=== PATIENT | female | born 1985 | race Two or more races ===

== ENCOUNTER 2019-07-20 23:34 | Emergency (ER) | payer OTHER ==
[~2019-07-20] VITALS: Ht 170.2 cm; Wt 85.7 kg
--- NOTE | 2019-07-20 23:48 | NUR ---
BIB FOR C/O ABD PAIN AND N/V STARTING 1844 . W/ PMH OF FIBROID. HAD FIBROID REMOVED PARTIALLY AT [facility] ON May,. LBM: TODAY. LMP: 07/17/19
[2019-07-20] MEDS ORDERED: ONDANSETRON HCL/PF 4 MG/2 ML VIAL ONE (23:52)
[2019-07-20] MEDS ORDERED: MORPHINE SULFATE INJ 4 MG/ML DISP.SYRIN ONE (23:53)
--- NOTE | 2019-07-20 23:57 | NUR ---
CERTIFIED PHARMACY TECHNICIAN AT BEDSIDE FOR LABS.
[2019-07-21] MEDS ORDERED: IV NS 0.9% 1,000 ML BAG IV ONE
[2019-07-21] MEDS ORDERED: ONDANSETRON HCL/PF 4 MG/2 ML VIAL IVP ONE
--- NOTE | 2019-07-21 00:03 | NUR ---
URINE COLLECTED AND SENT TO LAB
[2019-07-21 00:08] LABS: BASOPHILS % (AUTO) 0.5 % (0.0-2.0); EOSINOPHILS % (AUTO) 0.2 % (0.0-6.0); HEMATOCRIT 34 % (33-45); HEMOGLOBIN 11.1 g/dL (11.5-14.8); LYMPHOCYTES # (AUTO) 0.7 /CMM (0.8-4.8); LYMPHOCYTES % (AUTO) 6.3 % (20.0-44.0); MEAN CORPUSCULAR HGB CONC 33 g/dl (31.0-36.0); MEAN CORPUSCULAR VOLUME 79 fL (82-100); MONOCYTES # (AUTO) 0.7 /CMM (0.1-1.30); MONOCYTES % (AUTO) 6.9 % (2.0-12.0); NEUTROPHILS # (AUTO) 9.3 /CMM (1.8-8.9); NEUTROPHILS % (AUTO) 86.1 % (43.0-81.0); PLATELET COUNT (AUTO) 516 /CMM (150-450); RED BLOOD CELL COUNT(AUTO) 4.29 MIL/uL (4.0-5.2); WHITE BLOOD COUNT (AUTO) 10.8 K/uL (4.3-11.0)
--- NOTE | 2019-07-21 00:09 | NUR ---
DARCI GARCIA [phone]
[2019-07-21 00:14] LABS: CALCIUM, SERUM 8.7 mg/dL (8.5-10.1); CREATININE 0.9 mg/dL (0.6-1.3); POTASSIUM 3.3 mmol/L (3.5-5.1)
[2019-07-21 00:18] LABS: APPEARANCE,URINE Slightly Cloudy (CLEAR); BILIRUBIN,URINE MODERATE (NEGATIVE); BLOOD, URINE Large Ery/uL (NEGATIVE); COLOR,URINE Red (YELLOW); KETONES,URINE >=160 (NEGATIVE); LEUKOCYTE ESTERASE ,URINE Trace (NEGATIVE); NITRITE, URINE Positive (NEGATIVE); PH,URINE 5.5 (5.0-8.0); PROTEIN,URINE >=300 mg/dl (NEGATIVE); UGLUCOSE Negative (NEGATIVE)
[2019-07-21 00:21] LABS: ALBUMIN 2.8 g/dL (3.4-5.0); BILIRUBIN,DIRECT 0.1 mg/dL (0.0-0.2); BILIRUBIN,TOTAL 0.5 mg/dL (0.2-1.0); TOTAL PROTEIN, SERUM 7.5 g/dL (6.4-8.2)
[2019-07-21 00:26] LABS: BACTERIA,URINE Few /HPF (None Seen); RBC,URINE TOO NUMEROUS TO COUN /HPF (0-2)
[2019-07-21 00:27] LABS: SQUAMOUS EPITHELIAL CELL,UR Few /HPF (None Seen)
--- NOTE | 2019-07-21 00:42 | NUR ---
PT IS WHEELED TO CT SCAN VIA [facility].
[2019-07-21] MEDS ORDERED: CEFTRIAXONE 1GM BAG (ER ONLY) 50 ML IV ONE (01:18)
[2019-07-21] MEDS ORDERED: IOHEXOL-300 100 ML VIAL IV ONE (01:21)
[2019-07-21] MEDS ORDERED: IV NS 0.9% 250 ML IV ONE (01:22)
[2019-07-21] MEDS ORDERED: CEFTRIAXONE 1 G in IV D5W 50 ML IV ONE (01:30)
--- NOTE | 2019-07-21 01:33 | NUR ---
LEFT FOR CT
--- NOTE | 2019-07-21 01:45 | NUR ---
BACK FROM CT
[2019-07-21] MEDS ORDERED: MORPHINE SULFATE INJ 4 MG/ML DISP.SYRIN ONE (03:26)
[2019-07-21] MEDS ORDERED: MORPHINE SULFATE INJ 2 MG/ML DISP.SYRIN IV ONE ×2 (03:30)
--- NOTE | 2019-07-21 03:40 | NUR ---
PROVIDED PT BLANKET UPON REQUEST.
--- NOTE | 2019-07-21 03:49 | NUR ---
RECEIVED CALL FROM [facility]. UPDATED THEM ON PT STATUS
--- NOTE | 2019-07-21 04:18 | NUR ---
Patient is resting comfortably in bed with eyes closed. Easily aroused. VSS
--- NOTE | 2019-07-21 05:29 | NUR ---
CALLED [facility] FOR TRANSFER
--- NOTE | 2019-07-21 05:32 | NUR ---
KALYAN CORONADO ON PHONE WITH CARMEN CORONADO
--- NOTE | 2019-07-21 06:12 | NUR ---
PT'S FINGERPRINT TECHNICIAN DR AT [facility]: FRANCISCA STUBBS
[2019-07-21] MEDS ORDERED: HYDROMORPHONE 1 MG/1 ML DISP.SYRIN ONE (06:23)
--- NOTE | 2019-07-21 06:25 | NUR ---
PT W/ C/O SEVER LOWER ABD PAIN. DR POND MADE AWARE W/ A VERBAL ORDER FOR DIALUDID 1MG IV X ONE NOW. NEW ORDER NOTED AND CARRIED OUT.
--- NOTE | 2019-07-21 06:44 | NUR ---
RECEIVED CALL FROM [facility]. [facility] ER DR. Rosalia [facility] TRAN[facility]ORT ETA [id number]
[2019-07-21] MEDS ORDERED: HYDROMORPHONE 1 MG/1 ML DISP.SYRIN IV ONE ×2 (07:00)
[2019-07-21 07:25] VITALS: BP 120/60
--- NOTE | 2019-07-21 07:40 | NUR ---
REPORT GIVEN TO EMT TX FOR BUTCH
--- NOTE | 2019-07-21 07:42 | NUR ---
REPORT GIVEN TO EMANUEL CROSS. PT STABLE FOR TRANSFER.
== END 2019-07-21 07:44 | disposition short-term general hospital (02) ==
LOC: ER 23:37
DX: R19.00 Intra-abdominal and pelvic swelling, mass and lump, unspecified site (principal); R11.2 Nausea with vomiting, unspecified
CPT/HCPCS: 36415; 74176; 74177; 80048; 80076; 81001; 83690; 84703; 85025; 85730; 96361; 96365; 96375; 96376; 99285; J0696 ×2; J1170; J2270 ×2; J2405; J7030; J7050; J7060; Q9967; 81000-TC; 87086-TC